=== PATIENT | male | born 1995 | race Caucasian/White ===

== ENCOUNTER 2016-04-18 20:00 | Emergency (ER) | payer OTHER ==
[~2016-04-18] VITALS: Ht 170.2 cm; Wt 138.6 kg
[2016-04-18] MEDS ORDERED: PERTUSS(ACELL),DIPH,TET VAC/PF 0.5 ML VIAL IM ONE (21:15)
[2016-04-18] MEDS ORDERED: LIDOCAINE HCL BUFFERED 1% W/EPI 1:100,000 20 ML VIAL INJ ONE (21:15)
[2016-04-18 22:03] VITALS: BP 126/82
== END 2016-04-18 22:08 | disposition home or self-care (01) ==
LOC: EMS 20:01
DX: S71.111A Laceration without foreign body, right thigh, initial encounter (principal); W45.8XXA Other foreign body or object entering through skin, initial encounter; Y93.89 Activity, other specified; Y92.89 Other specified places as the place of occurrence of the external cause; Y99.8 Other external cause status
CPT/HCPCS: 12001; 90471; 90715; 99283; J3490